=== PATIENT | male | born 1970 | race Two or more races ===

== ENCOUNTER 2022-08-04 03:14 | Emergency (ER) | payer MEDICARE, OTHER ==
[~2022-08-04] VITALS: Ht 162.6 cm; Wt 100.7 kg
[2022-08-04] MEDS ORDERED: MORPHINE SULFATE INJ 2 MG/ML DISP.SYRIN ONE (03:25)
--- NOTE | 2022-08-04 03:27 | NUR ---
KATHERYN FROM HOME FOR C/O BLE PAIN AND WEAKNESS X 3 DAYS.
[2022-08-04] MEDS: MORPHINE SULFATE INJ 2 MG/ML DISP.SYRIN IV ONE (03:35)
[2022-08-04 03:50] LABS: BASOPHILS % (AUTO) 0.4 % (0.0-2.0); EOSINOPHILS % (AUTO) 0.6 % (0.0-6.0); HEMATOCRIT 42 % (39-51); HEMOGLOBIN 13.7 g/dL (13.5-17.5); LYMPHOCYTES # (AUTO) 1.7 K/uL (0.8-4.8); LYMPHOCYTES % (AUTO) 15.3 % (20.0-44.0); MEAN CORPUSCULAR HGB CONC 33 g/dl (31.0-36.0); MEAN CORPUSCULAR VOLUME 89 fL (80-96); MONOCYTES # (AUTO) 1.4 K/uL (0.1-1.30); MONOCYTES % (AUTO) 12.3 % (2.0-12.0); NEUTROPHILS % (AUTO) 71.4 % (43.0-81.0); PLATELET COUNT (AUTO) 269 K/uL (150-450); RED BLOOD CELL COUNT(AUTO) 4.68 MIL/uL (4.5-6.0); WHITE BLOOD COUNT (AUTO) 11.2 K/uL (4.3-11.0)
[2022-08-04 04:01] LABS: CALCIUM, SERUM 8.8 mg/dL (8.5-10.1); CREATININE 1.2 mg/dL (0.6-1.3); POTASSIUM 4.1 mmol/L (3.5-5.1)
[2022-08-04] MEDS ORDERED: OXYC-117 PO (05:10)
[2022-08-04] MEDS ORDERED: HYDROCODONE/APAP 5/325MG TABLET ONE (05:10)
[2022-08-04 05:15] VITALS: BP 133/75
[2022-08-04] MEDS: HYDROCODONE/APAP 5/325MG TABLET PO ONE (05:15)
--- NOTE | 2022-08-04 05:15 | NUR ---
Patient discharged to home in stable condition. Written and verbal after care instructions given. Patient verbalizes understanding of instruction.IV removed. Catheter intact and site benign. Pressure and 4x4 applied to site. No bleeding noted.
== END 2022-08-04 05:15 | disposition home or self-care (01) ==
LOC: ER 03:16
DX: M79.605 Pain in left leg (principal); M79.604 Pain in right leg; Z88.0 Allergy status to penicillin
CPT/HCPCS: 99285; 96374; 85025; 80048; 36415; 85730; 93971 ×2; J2270